=== PATIENT | male | born 1970 | race Caucasian/White ===

== ENCOUNTER 2022-04-20 15:50 | Day surgery (SDC) | payer OTHER ==
[2022-04-20] MEDS ORDERED: Xylocaine 1% Vial 30 ML PF IJ ONE (15:51)
[2022-04-20] MEDS ORDERED: Depo-Medrol 40 MG/ML IM ONE (15:51)
[2022-04-20] MEDS ORDERED: Sodium Chloride 0.9(Preservative Free) 10 ML IJ ONE (15:51)
--- NOTE | 2022-04-20 19:19 | XRAY ---
Indication: Lumbar NIC. Intraoperative fluoroscopy provided for 17 seconds. 2 digital spot image submitted for interpretation demonstrates posterior needle tip projecting just posterior to lumbosacral interspace. Small amount of contrast injected for needle tip placement. Correlate with intraoperative findings/report.
--- NOTE | 2022-04-21 10:47 | XRAY ---
17 seconds of fluoroscopy was used in surgery for a lumbar NIC.
== END 2022-04-20 18:33 | disposition home or self-care (01) ==
LOC: SDC-PAIN 15:50
PROVIDERS: ATTEND Psychiatry & Neurology Pain Medicine
DX: M54.16 Radiculopathy, lumbar region (principal); Z79.899 Other long term (current) drug therapy
CPT/HCPCS: 62323; 72100; 77003; 82947; J1030; J2001; Q9966

== ENCOUNTER 2022-06-01 08:11 | Day surgery (SDC) | payer OTHER ==
[2022-06-01] MEDS ORDERED: LIDOCAINE HCL 2% 100 MG/5 ML IJ ONE (08:12)
[2022-06-01] MEDS ORDERED: DIPRIVAN 200 MG/20 ML IV ONE (09:32)
[2022-06-01] MEDS ORDERED: Versed 2 MG/2 ML Injection ONE (09:47)
[2022-06-01] MEDS ORDERED: Lactated Ringers 1,000 ML IV ONE (10:50)
--- NOTE | 2022-06-01 11:04 | XRAY ---
Indication: Bilateral L4-S1 MBB. Intraoperative fluoroscopy provided for 10 seconds. Single digital spot image submitted for interpretation demonstrates posterior needle tips projecting over the expected left and right L4-S1 nerve roots. Correlate with intraoperative findings/report.
--- NOTE | 2022-06-01 11:58 | XRAY ---
10 seconds of fluoroscopy was used in surgery for a bilateral L4-S1 MBB.
== END 2022-06-01 10:04 | disposition home or self-care (01) ==
LOC: SDC-PAIN 08:11
PROVIDERS: ATTEND Psychiatry & Neurology Pain Medicine
DX: M47.816 Spondylosis without myelopathy or radiculopathy, lumbar region (principal); Z79.899 Other long term (current) drug therapy
CPT/HCPCS: 64493; 64494; 72020; 77002; 82947; J2250; J2704

== ENCOUNTER 2022-07-27 12:54 | Day surgery (SDC) | payer OTHER ==
[2022-07-27] MEDS ORDERED: Depo-Medrol 40 MG/ML IM ONE (12:55)
[2022-07-27] MEDS ORDERED: BUPIVACAINE 0.5% VIAL IJ ONE (12:55)
[2022-07-27] MEDS ORDERED: DIPRIVAN 200 MG/20 ML IV ONE (14:16)
--- NOTE | 2022-07-27 14:57 | XRAY ---
Indication: Bilateral L4-S1 MBB. Intraoperative fluoroscopy provided for 11 seconds. Single digital spot image submitted for interpretation demonstrates posterior needle tips projecting over the expected left and right L4-S1 nerve roots. Correlate with intraoperative findings/report.
--- NOTE | 2022-07-27 16:42 | XRAY ---
11 seconds of fluoroscopy was used in surgery for a bilateral L4-S1 MBB.
[2022-07-27] MEDS ORDERED: Lactated Ringers 1,000 ML IV ONE (16:48)
== END 2022-07-27 14:50 | disposition home or self-care (01) ==
LOC: SDC-PAIN 12:54
PROVIDERS: ATTEND Psychiatry & Neurology Pain Medicine
DX: M47.816 Spondylosis without myelopathy or radiculopathy, lumbar region (principal); Z79.899 Other long term (current) drug therapy
CPT/HCPCS: 64493; 64494; 72020; 77002; 82947; J1030; J2704

== ENCOUNTER 2022-08-24 07:47 | Day surgery (SDC) | payer OTHER ==
[2022-08-24] MEDS ORDERED: Depo-Medrol 40 MG/ML IM ONE (07:48)
[2022-08-24] MEDS ORDERED: LIDOCAINE HCL 1% 50 MG/5 ML VL PF IJ ONE (07:48)
[2022-08-24] MEDS ORDERED: BUPIVACAINE 0.5% VIAL IJ ONE (07:48)
[2022-08-24] MEDS ORDERED: DIPRIVAN 200 MG/20 ML IV ONE ×2 (08:57→09:06)
--- NOTE | 2022-08-24 10:26 | XRAY ---
Indication: Right L4-S1 RFA. Intraoperative fluoroscopy provided for 24 seconds. 5 digital spot image submitted for interpretation demonstrates posterior needle tips projecting over the expected right L4-S1 nerve roots. Correlate with intraoperative findings/report.
--- NOTE | 2022-08-24 11:15 | XRAY ---
24 seconds of fluoroscopy was used in surgery for a right L4-S1 RFA.
[2022-08-24] MEDS ORDERED: Lactated Ringers 1,000 ML IV ONE (14:14)
== END 2022-08-24 09:30 | disposition home or self-care (01) ==
LOC: SDC-PAIN 07:47
PROVIDERS: ATTEND Psychiatry & Neurology Pain Medicine
DX: M47.816 Spondylosis without myelopathy or radiculopathy, lumbar region (principal); Z79.899 Other long term (current) drug therapy
CPT/HCPCS: 64635; 64636; 72100; 77002; 82947; J1030; J2001; J2704

== ENCOUNTER 2022-08-31 10:10 | Day surgery (SDC) | payer OTHER ==
[2022-08-31] MEDS ORDERED: Depo-Medrol 40 MG/ML IM ONE (10:11)
[2022-08-31] MEDS ORDERED: LIDOCAINE HCL 1% 50 MG/5 ML VL PF IJ ONE (10:11)
[2022-08-31] MEDS ORDERED: BUPIVACAINE 0.5% VIAL IJ ONE (10:11)
[2022-08-31] MEDS ORDERED: DIPRIVAN 200 MG/20 ML IV ONE (12:01)
[2022-08-31] MEDS ORDERED: Versed 2 MG/2 ML Injection ONE (12:03)
[2022-08-31] MEDS ORDERED: SUBLIMAZE 100 MCG/2 ML ONE (12:03)
--- NOTE | 2022-08-31 12:44 | XRAY ---
Indication: Left L4-S1 RFA. Intraoperative fluoroscopy provided for 22 seconds. 3 digital spot image submitted for interpretation demonstrates posterior needle tips projecting over the expected left L4-S1 nerve roots. Correlate with intraoperative findings/report.
--- NOTE | 2022-08-31 12:58 | XRAY ---
22 seconds of fluoroscopy was used in surgery for a left L4-S1 RFA.
[2022-08-31] MEDS ORDERED: Lactated Ringers 1,000 ML IV ONE (13:55)
== END 2022-08-31 12:33 | disposition home or self-care (01) ==
LOC: SDC-PAIN 10:10
PROVIDERS: ATTEND Psychiatry & Neurology Pain Medicine
DX: M47.816 Spondylosis without myelopathy or radiculopathy, lumbar region (principal); E11.9 Type 2 diabetes mellitus without complications; Z79.899 Other long term (current) drug therapy
CPT/HCPCS: 64635; 64636; 72100; 77002; 82947; J1030; J2001; J2250; J2704; J3010

== ENCOUNTER 2024-08-28 09:44 | Day surgery (SDC) | payer OTHER ==
[2024-08-28] MEDS ORDERED: Depo-Medrol 40 MG/ML IM ONE (09:45)
[2024-08-28] MEDS ORDERED: LIDOCAINE HCL 1% AMPUL 5 ML IJ ONE (09:45)
[2024-08-28] MEDS ORDERED: BUPIVACAINE 0.5% VIAL IJ ONE (09:45)
[2024-08-28] MEDS ORDERED: Lactated Ringers 500 ML IV ONE (10:22)
[2024-08-28] MEDS ORDERED: propofoL IV ONE (12:07)
--- NOTE | 2024-08-28 13:04 | XRAY ---
Indication: Right L4-S1 RFA. Intraoperative fluoroscopy provided for 19 seconds. 5 digital spot image submitted for interpretation demonstrate posterior needle tips projecting over expected right L4-S1 nerve roots. Correlate with intraoperative findings/report.
--- NOTE | 2024-08-28 13:06 | XRAY ---
19 seconds of fluoroscopy was used in surgery for a right L4-S1 RFA.
== END 2024-08-28 12:35 | disposition home or self-care (01) ==
LOC: SDC-PAIN 09:44
PROVIDERS: ATTEND Psychiatry & Neurology Pain Medicine
DX: M47.816 Spondylosis without myelopathy or radiculopathy, lumbar region (principal); E11.9 Type 2 diabetes mellitus without complications
CPT/HCPCS: 64635; 64636; 72100; 77002; 82947; J2704

== ENCOUNTER 2024-09-04 08:42 | Day surgery (SDC) | payer OTHER ==
[2024-09-04] MEDS ORDERED: LIDOCAINE HCL 1% AMPUL 5 ML IJ ONE (08:43)
[2024-09-04] MEDS ORDERED: BUPIVACAINE 0.5% VIAL IJ ONE (08:43)
[2024-09-04] MEDS ORDERED: Depo-Medrol 40 MG/ML IM ONE (08:43)
[2024-09-04] MEDS ORDERED: Lactated Ringers 500 ML IV ONE (08:55)
[2024-09-04] MEDS ORDERED: propofoL IV ONE ×2 (10:24→10:36)
--- NOTE | 2024-09-04 11:57 | XRAY ---
Indication: Left L4-S1 RFA. Intraoperative fluoroscopy provided for 13 second. 3 digital spot image submitted for interpretation demonstrates posterior needle tips project over expected left L4-S1 nerve roots. Correlate with intraoperative findings/report.
--- NOTE | 2024-09-04 14:44 | XRAY ---
13 seconds of fluoroscopy was used in surgery for a left L4-S1 RFA.
== END 2024-09-04 11:05 | disposition home or self-care (01) ==
LOC: SDC-PAIN 08:42
PROVIDERS: ATTEND Psychiatry & Neurology Pain Medicine
DX: M47.816 Spondylosis without myelopathy or radiculopathy, lumbar region (principal); E11.9 Type 2 diabetes mellitus without complications
CPT/HCPCS: 64635; 64636; 72100; 77002; 82947; J2704